=== PATIENT | female | born 1975 | race Caucasian/White ===

== ENCOUNTER 2025-11-02 11:28 | Emergency (ER) | payer MEDICARE ==
[~2025-11-02] VITALS: Ht 152.4 cm; Wt 74.8 kg
[2025-11-02 11:30] VITALS: BP 122/85; PULSE 80; RESP 16; TEMP 97.4
--- NOTE | 2025-11-02 11:37 | ERN ---
ED Note History of Present Illness Stated Complaint: WRIST INJURY Chief Complaint: Wrist Pain/Injury Time Seen by MD: 11:30 Dictation: PATIENT IS A 50-YEAR-OLD FEMALE COMING IN TODAY WITH COMPLAINTS OF CHRONIC RIGHT WRIST PAIN NON TRAUMA FOR THE LAST TWO MONTHS. NO FEVER NO CHILLS NO NAUSEA VOMITING. SHE DENIES ANY HISTORY OF GOUT. 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 SHE STATES SHE HAS ALREADY SEEN BY HER DOCTOR AT [facility], THEY DID X-RAYS AND THEN PUT HER IN A SPLINT. SHE WAS NOT REFERRED TO ORTHOPEDIC SURGERY. SHE SAID THE SPLINT WAS REMOVED HOWEVER SHE CONTINUED PAIN AND THEY REPEATED THE X-RAY AND WAS TOLD EVERYTHING WAS NORMAL ON-CALL. Allergies: Coded Allergies: sumatriptan (Unverified Allergy, Unknown, 11/02/25) Past Medical History Past Medical History: Depression, High Cholesterol, Other Additional Past Medical Hx: STOMACH SPASMS Surgical History: Other Surgical History Other: BREAST SCAR TISSURE REMOVAL. LEFT KNEE SX, BREAST AUGMENTATION. History: Not Applicable RN Note Reviewed/Agreed w/PFSH: Yes Review of System Dictation CONSTITUTIONAL: NEGATIVE EXCEPT FOR HPI HEAD/FACE: NEGATIVE EXCEPT FOR HPI EENT: NEGATIVE EXCEPT FOR HPI RESPIRATORY: NEGATIVE EXCEPT FOR HPI GASTROINTESTINAL/ABDOMINAL: NEGATIVE EXCEPT FOR HPI GENITOURINARY: NEGATIVE EXCEPT FOR HPI MUSCULOSKELETAL: NEGATIVE EXCEPT FOR HPI RIGHT WRIST PAIN INTEGUMENTARY: NEGATIVE EXCEPT FOR HPI NEUROLOGICAL/PSYCH: NEGATIVE EXCEPT FOR HPI HEMATOLOGIC/LYMPHATIC: NEGATIVE EXCEPT FOR HPI ALL SYSTEMS NEGATIVE, EXCEPT NOTED ABOVE. 13 POINT REVIEW OF SYSTEMS ASSESSED AND ALL NEGATIVE EXCEPT FOR ABOVE. Initial Vital Sign VS Vital Signs Date Time Temp Pulse Resp B/P (MAP) Pulse Ox O2 Delivery O2 Flow Rate FiO2 11/02/25 11:30 97.3 80 16 122/85 98 Room Air 0 Physical Exam Dictation VITAL SIGNS REVIEWED GENERAL APPEARANCE: ALERT, ORIENTED X 3, MODERATE ACUTE DISTRESS, WELL DEVELOPED, NOURISHED. HEAD AND FACE: NON-TRAUMATIC. EYES: PERRL, PINK CONJUNCTIVAS, EYELID NO TRAUMA, ANTERIOR CHAMBER WITH ARCUS SENILIS. EARS: PINNAS INTACT AND NO SIGNS OF TRAUMA OR ERYTHEMA EAR CANALS CLEAR AND NO DISCHARGE TM NO ERYTHEMA NOSE: NO DISCHARGE, NO BLEEDING. OROPHARYNX: MOUTH NORMAL, TONGUE PINK, PHARYNX CLEAR,NO ERYTHEMA, TONSILS NO EXUDATES, NO ABSCESSES NOTED, MUCOUS MEMBRANE MOIST NECK: SUPPLE, NON-TENDER, NO THYROMEGALY, NO MASSES, NO JVD, NO BRUITS BREAST:DEFERRED CHEST:NO TENDERNESS, NO CREPITUS, NO PARADOXICAL MOVEMENT, NO RETRACTIONS LUNGS:CLEAR, WELL-VENTILATED, SYMMETRIC, NO RALES, NO WHEEZING, NO RHONCHI, NO STRIDOR, GOOD BREATH SOUNDS BILATERALLY HEART: REGULAR RATE, REGULAR RHYTHM, NO MURMUR, NO GALLOPS VASCULAR: NO PERIPHERAL EDEMA, ABDOMEN: SOFT, POSITIVE BOWEL SOUNDS, NONDISTENDED, NO GUARDING, NONTENDER, NO REBOUND, NO MASSES NO HEPATOMEGALY, NO SPLENOMEGALY, NO TEAGUE'S SIGN, NO HERNIAS. RECTAL: DEFERRED GENITAL: DEFERRED NEUROLOGICAL: NORMAL SPEECH, MOTOR FUNCTION INTACT, SENSORY FUNCTION INTACT MUSCULOSKELETAL: NECK NONTENDER, FULL RANGE OF MOTION, BACK NONTENDER, FULL RANGE OF MOTION, EXTREMITIES: DIFFUSE RIGHT WRIST PAIN WITH PALPATION. DECREASED RANGE OF MOTION SECONDARY TO PAIN, NO ERYTHEMA NO SWELLING. NEUROVASCULAR CMS INTACT TO RIGHT HAND SKIN: COLOR PINK, DRY, NO TURGOR, NO RASH, NO LACERATIONS, NO ABRASIONS, NO CONTUSIONS. LYMPHATIC: DEFERRED Results (Laboratory/Radiology) Laboratory/Radiology Laboratory Tests Test 11/02/25 11:56 White Blood Count 5.5 K/uL (4.8-10.8) Red Blood Count 4.47 MIL/uL (4.00-5.50) Hemoglobin 13.6 g/dL (12.0-16.0) Hematocrit 41.4 % (36-48) Mean Corpuscular Volume 92.6 fL (79-99) Mean Corpuscular Hemoglobin 30.4 pg (27.0-33.0) Mean Corpuscular Hemoglobin Concent 32.9 g/dL (32.0-36.0) Red Cell Distribution Width 12.2 % (11.0-15.5) Platelet Count 155 K/uL (130-400) Mean Platelet Volume 10.5 fL (7.5-10.5) Immature Granulocyte % (Auto) 0.5 % (0-1) Neutrophils (%) (Auto) 48.2 % (40.0-77.0) Lymphocytes (%) (Auto) 41.3 % (21.0-51.0) Monocytes (%) (Auto) 6.2 % (3.0-13.0) Eosinophils (%) (Auto) 3.1 % (0.0-8.0) Basophils (%) (Auto) 0.7 % (0.0-5.0) Neutrophils # (Auto) 2.6 K/uL (1.8-7.7) Lymphocytes # (Auto) 2.3 K/uL (1.0-4.8) Monocytes # (Auto) 0.3 K/uL (0.1-1.0) Eosinophils # (Auto) 0.17 K/uL (0.00-0.70) Basophils # (Auto) 0.04 K/uL (0.00-0.20) Absolute Immature Granulocyte (auto 0.03 K/uL (0-1) Nucleated Red Blood Cells 0.0 % (0.0-0.19) Sodium Level 139 mmol/L (136-145) Potassium Level 4.4 mmol/L (3.5-5.1) Chloride Level 102 mmol/L (101-111) Carbon Dioxide Level 27 mmol/L (21-32) Blood Urea Nitrogen 20 mg/dL (7-18) H Creatinine 0.9 mg/dL (0.5-1.0) Glomerular Filtration Rate Calc 79 mL/min (>90) Random Glucose 103 mg/dL (70-105) Uric Acid 6.7 mg/dL (2.6-7.2) Total Calcium 9.6 mg/dL (8.5-10.1) EXAM: CR right Wrist, 3 View. CLINICAL HISTORY: NON TRAUMA RIGHT WRIST PAIN TWO MONTHS COMPARISON: None provided. FINDINGS: BONES: No acute osseous abnormality. No acute fracture. JOINTS: No dislocation. Degenerative joint disease changes carpal-first metacarpal joint. Large osteophyte located between the base of the 1st and 2nd metacarpal bones SOFT TISSUES: The soft tissues are unremarkable. IMPRESSION: 1. No acute osseous injury. 2. Degenerative joint disease of the carpometacarpal joint of the thumb. 3. Large osteophyte between the bases of the 1st and 2nd metacarpal bones. /[place] Labs Reviewed?: Yes ED Course ED Course Orders Procedure Category Date Status Time Wrist Comp 3+Vws Rt RAD 11/02/25 Resulted 11:34 Uric Acid LAB 11/02/25 Complete 11:34 Ketorolac 60mg/2ml PHA 11/02/25 Complete (Toradol 60mg/2ml) 12:00 Cbc With Differential LAB 11/02/25 Complete 11:34 Basic Metabolic Panel LAB 11/02/25 Complete 11:34 Current Medications Medications (Trade) Dose Ordered Sig/Patrick Route PRN Reason Start Time Stop Time Status Last Admin Dose Admin Ketorolac Tromethamine (toRADol 60MG/ 2ML) 60 mg ONCE ONCE IM 11/02/25 12:00 11/02/25 12:01 DC 11/02/25 12:22 Vital Signs Date Time Temp Pulse Resp B/P (MAP) Pulse Ox O2 Delivery O2 Flow Rate FiO2 11/02/25 11:30 97.3 80 16 122/85 98 Room Air 0 1255/SPOKE WITH PATIENT AT LENGTH REGARDING HER CLINICAL FINDINGS TO INCLUDE LABS OSTEOARTHRITIS OF THE HAND WITH A AN OSTEOPHYTE. VOLAR SPLINT PLACED BY [employer], DISTAL NEUROVASCULAR CMS INTACT POST PLACEMENT. PATIENT REFERRED TO DR. JANELLE VU Medical Decision Making MDM MEDICAL DECISION-MAKING BASED ON BASIC LABS AND X-RAY OF RIGHT WRIST URIC ACID AND GOUTY ARTHRITIS WAS RULED OUT X-RAY SHOWS OSTEOPHYTE TO BETWEEN 1ST AND 2ND METACARPALS DJD RIGHT HAND. PATIENT DISCHARGED HOME WITH A WRIST IMMOBILIZED GIVEN IBUPROFEN AND MEDROL DOSEPAK REFERRED TO JANELLE VU DX & DISP Disposition: Discharge Departure Impression: Primary Impression: Osteoarthritis of hand, right Additional Impressions: Osteophyte of right hand, Chronic pain of right wrist Condition: Stable Scripts Methylprednisolone (Medrol) 4 Mg Tab.ds.pk 1 TAB PO AD for 6 Days, #21 TAB 0 Refills 6 on day 1 then reduce by one tablet daily until gone Prov: STARLA MADDOX 11/02/25 Ibuprofen (Ibuprofen 800 mg Tab) 800 Mg Tab 800 MG PO Q8H PRN for fever or pain, #30 TAB 0 Refills Prov: STARLA MADDOXP 11/02/25 Additional Instructions: FOLLOW-UP WITH PRIMARY CARE PROVIDER IN 1 TO 2 DAYS. TAKE MEDICATIONS DIRECTED HERE IN THE EMERGENCY ROOM. OKAY TO CONTINUE HOME MEDICATIONS UNLESS OTHERWISE DISCUSSED DURING YOUR VISIT IN THE EMERGENCY ROOM TODAY. RETURN TO YOUR NEAREST EMERGENCY ROOM IF SYMPTOMS WORSEN OR IF THERE IS NO IMPROVEMENT. CALL 911 IF YOU NEED IMMEDIATE ASSISTANCE. TAKE TYLENOL OR MOTRIN [id number] NEEDED AND IF NO CONTRAINDICATIONS ARE PRESENT. INCREASE ORAL HYDRATION. A WOUND CULTURE OR URINE CULTURE WAS ORDERED HERE IN THE EMERGENCY ROOM DEPARTMENT PLEASE FOLLOW-UP WITH PRIMARY CARE PROVIDER AND ADVISE THEM TO GET REPEAT PORTS FROM OUR FACILITY. IF YOU HAD ANY ANA MARIA WRAP/SPLINTS THAT WERE APPLIED HERE, PLEASE DO NOT REMOVE THEM UNTIL YOU SEE YOUR PRIMARY CARE OR SPECIALTY. SPLINT AND NO WEIGHT-BEARING TO RIGHT HAND WRIST UNTIL CLEARED BY ORTHOPEDICS. TAKE IBUPROFEN EVERY 8 HOURS WITH FOOD FOR THE NEXT TWO DAYS. TAKE MEDROL DOSEPAK DIRECTED UNTIL GONE. CALL ORTHOPEDIC SURGEON FOR APPOINTMENT IN THE NEXT 1-2 DAYS. Referrals: JANELLE VU MD Time of Disposition: 12:52 I have reviewed the case, and I agree with, Diagnosis and Plan STARLA MADDOX MAGISTERIAL DISTRICT JUDGE Nov 02, 2025 11:37
[2025-11-02 12:07] LABS: IMMATURE GRANULOCYTE ABSOLUTE 0.03 K/uL (0-1); NUCLEATED RED BLOOD CELLS 0.0 % (0.0-0.19); PLATELET COUNT (AUTO) 155 K/uL (130-400); RED BLOOD CELL COUNT(AUTO) 4.47 MIL/uL (4.00-5.50); RED CELL DISTRIBUTION WIDTH 12.2 % (11.0-15.5); WHITE BLOOD COUNT (AUTO) 5.5 K/uL (4.8-10.8)
[2025-11-02 12:18] LABS: CREATININE 0.9 mg/dL (0.5-1.0); GLOMERULAR FILTR. RATE CALC 79.0 mL/min (>90); GLUCOSE,RANDOM 103.0 mg/dL (70-105); SODIUM SERUM 139.0 mmol/L (136-145); UREA NITROGEN, BLOOD 20.0 mg/dL (7-18)
--- NOTE | 2025-11-02 12:25 | HMCIMG ---
EXAM: CR right Wrist, 3 View. CLINICAL HISTORY: NON TRAUMA RIGHT WRIST PAIN TWO MONTHS COMPARISON: None provided. FINDINGS: BONES: No acute osseous abnormality. No acute fracture. JOINTS: No dislocation. Degenerative joint disease changes carpal-first metacarpal joint. Large osteophyte located between the base of the 1st and 2nd metacarpal bones SOFT TISSUES: The soft tissues are unremarkable. IMPRESSION: 1. No acute osseous injury. 2. Degenerative joint disease of the carpometacarpal joint of the thumb. 3. Large osteophyte between the bases of the 1st and 2nd metacarpal bones. /[place]
--- NOTE | 2025-11-02 12:54 | NUR ---
PLACED PRE-MADE SPLINT ONTO RIGHT WRIST.
--- NOTE | 2025-11-02 12:59 | NUR ---
APPLIED VOLAR SPLINT QUICK FIT TO LT WRIST, PT TOLERATED WELL
== END 2025-11-02 13:03 | disposition home or self-care (01) ==
LOC: EDH 11:28
DX: M19.041 Primary osteoarthritis, right hand (principal); M25.741 Osteophyte, right hand; G89.29 Other chronic pain; M25.531 Pain in right wrist; E78.00 Pure hypercholesterolemia, unspecified; F32.A Depression, unspecified; Z88.8 Allergy status to other drugs, medicaments and biological substances
CPT/HCPCS: 99284; 84550; 80048; 85025; 36415; 73110; 29125; 96372; J1885